=== PATIENT | male | born 1970 | race Caucasian/White ===

== ENCOUNTER → 2020-07-01 13:12 | Outpatient (CLI) | payer OTHER, SELFPAY ==
--- NOTE | ~2020-07-01 | US_ITS ---
EXAMINATION: US thyroid DATE: 07/01/2020 13:30 INDICATION: Nontoxic single thyroid nodule. TECHNIQUE: Multiple ultrasound images of the thyroid were obtained. COMPARISON: None. FINDINGS: The right thyroid lobe measures 5.2 x 1.9 x 1.7 cm. The left thyroid lobe measures 4.8 x 1.9 x 1.7 c m. There is normal echotexture and echogenicity throughout the thyroid gland. No discrete nodules id entified. Normal vascular flow is present. IMPRESSION: 1. Normal thyroid. Reviewed, dictated and finalized at location A. NSED CLINICAL SOCIAL WORKER IMPRESSION: 1. Normal thyroid.
== END ==
PROVIDERS: PCP Family Medicine; Visit Provider Family Medicine
DX: E04.1 Nontoxic single thyroid nodule (principal)
CPT/HCPCS: 76536

== ENCOUNTER 2021-10-06 14:31 | Emergency (ER) | payer OTHER, SELFPAY ==
--- NOTE | ~2021-10-06 | XR_ITS ---
EXAMINATION: XR foot RT min 3V EXAM DATE: 10/06/2021 14:51 INDICATION: Pain, bruising Rt 2nd toe, dropped heavy object onto toe today . TECHNIQUE: Right foot dorsoplantar, lateral and oblique projections obtained and reviewed. Right 2nd toe lateral image. There is no prior study for comparison. FINDINGS: Right metatarsal bones unremarkable. There is acute closed posttraumatic nondisplaced fra cture of the right 2nd distal phalanx, best seen on the dedicated right 2nd toe lateral image. There is overlying soft tissue swelling. No other suspicious findings. IMPRESSION: Nondisplaced right 2nd distal phalangeal fracture. Reviewed, dictated and finalized at location A.
[2021-10-06 14:38] VITALS: BP 138/90; PULSE 70; RESP 12; TEMP 37.3; O2SAT 100
--- NOTE | 2021-10-06 14:42 | ED.LOWEXIN ---
HPI - Extremity Injury (Lower) General Chief Complaint: Extremity Injury, Lower Stated Complaint: INJURED TOE Time Seen by Provider: 10/06/21 14:42 Source: patient Mode of arrival: ambulatory Limitations: no limitations History of Present Illness HPI Narrative: 51 y/o male presented for c/o pain to right 2nd toe after injury today at work. States a metal header approx 30lbs landed on the toe. He was wearing tennis shoes. Endorses bruising, mild pain/swelling. He states he can bend the toe. Denies open wounds, numbness, tingling or weakness. Ambulating with steady gait. Has not taken anything for pain. Related Data Home Medications Medication Instructions Recorded Confirmed No Home Medications 06/27/20 06/27/20 Allergies Allergy/AdvReac Type Severity Reaction Status Date / Time No Known Allergies Allergy Verified 06/27/20 15:49 Review of Systems Review of Systems: CONSTITUTIONAL: Denies body aches, fever, chills EYES: Denies visual changes ENT: Denies rhinorrhea, congestion CARDIOVASCULAR: Denies chest pain, palpitations, or edema. RESPIRATORY: Denies cough or dyspnea. GASTROINTESTINAL: Denies abdominal pain, nausea, vomiting, or diarrhea. SKIN: Denies rash, itching, or wounds. MUSCULOSKELETAL: reports right 2nd toe pain NEUROLOGIC: Denies headache, numbness, tingling, or weakness. PSYCH: Denies depression or anxiety. All systems reviewed & are unremarkable except as noted in HPI and below PMFSH Family History Family History Father Thyroid cancer Cerebrovascular accident Mother Crohn disease Social History Social History Smoking packs per day: 0.5 Smoking cigarettes per day: 10.0 Years smoked: 18 Smoking pack-years: 9.00 Smoking status: Current every day smoker Second hand tobacco smoke exposure: Yes Alcohol intake: current Drinks per week: 2 Substance use: never Substance use type: does not use Gender identity (if verbalized by the patient): Male Comments At time of signature, I have reviewed and agree with nursing past medical, surgical, social and family history unless otherwise noted. Please see nursing chart for further information. There is no relevant family history pertinent to the presenting complaint Exam Narrative: GENERAL: Well-appearing, well-nourished, and in no acute distress. HEAD: Normocephalic, atraumatic. EYES: conjunctivae clear NECK: Supple. CHEST: Speaks in full sentences. No respiratory distress. HEART: Regular rate and rhythm. Normal and equal peripheral pulses. EXTREMITIES: Right 2nd toe with mild edema and ecchymosis to the DIP and middle phalanx approx 1cm diameter with superficial skin abrasion no bleeding or drainage, minimal tenderness with palpation. right foot has normal strength and sensation, normal range of motion to the toe. No obvious deformity; pulse palpable and equal bilaterally, skin warm, dry, pink. Capillary refill less than 3 seconds. SKIN: Warm, dry, no rash. NEURO: Alert and oriented x3. PSYCH: Normal mood and affect Course Course Emergency Course: Patient is aware of diagnosis, understands and agrees to treatment plan. Anticipatory guidance given. Patient agrees to follow-up as directed and is aware of reasons to seek care at the emergency department. Portions of this record may have been created with voice recognition software Level of Care: Express Care Visit Vital Signs Vital signs: Reviewed MDM - Extremity Injury (Lower) MDM Narrative Medical decision making narrative: Xray shows nondisplaced fx distal phalanx of right 2nd toe, reviewed with pt. Josh tape and post op shoe advised and applied per RN/tech. no concern for tendon/nerve injury at this time. Advised to f/u with pcp, and ortho/supervisor powder and primer canning. Questions answered. v/u Differential Diagnosis Differential diagnosis: Likely fracture of toe Imaging
== END 2021-10-06 15:16 | disposition home or self-care (01) ==
PROVIDERS: Emergency Provider Nurse Practitioner Family; PCP Family Medicine
DX: S92.534A Nondisplaced fracture of distal phalanx of right lesser toe(s), initial encounter for closed fracture (principal); W20.8XXA Other cause of strike by thrown, projected or falling object, initial encounter; F17.210 Nicotine dependence, cigarettes, uncomplicated
CPT/HCPCS: 73630; 99214; G0463

== ENCOUNTER → 2021-10-16 11:22 | Outpatient (CLI) | payer OTHER, SELFPAY ==
--- NOTE | ~2021-10-16 | XR_ITS ---
XR toe 2nd RT min 2V DATE: 10/16/2021 12:08 INDICATION: Right toe fracture TECHNIQUE: 3 views COMPARISON: right foot FINDINGS: Again noted is fracture of the shaft and tuft of the distal phalanx of the second digit wit hout significant displacement or angulation. There is soft tissue swelling of the second digit. IMPRESSION: Virtually nondisplaced fracture of the distal phalanx, with surrounding soft tissue swell ing Reviewed, dictated and finalized at location A. IMPRESSION: Virtually nondisplaced fracture of the distal phalanx, with surroun ding soft tissue swelling
== END ==
PROVIDERS: PCP Family Medicine; Visit Provider Family Medicine
DX: S92.534A Nondisplaced fracture of distal phalanx of right lesser toe(s), initial encounter for closed fracture (principal)
CPT/HCPCS: 73660

== ENCOUNTER → 2021-11-18 15:40 | Outpatient (CLI) | payer OTHER, SELFPAY ==
--- NOTE | ~2021-11-18 | XR_ITS ---
EXAMINATION: XR foot RT 2V INDICATION: Right second digit fracture, follow-up TECHNIQUE: Two views of the right foot are obtained. COMPARISON: 10/16/2021 FINDINGS: Again seen is a neck fracture of the second distal phalanx. There does not appear to be muna reciable calcified callus at the fracture site although sensitivity is limited by two view radiograph . There is mild osteoarthritis of multiple interphalangeal joints. No additional fracture is identifi ed. The soft tissues are unremarkable. IMPRESSION: 1. Persistent fracture of the second distal phalanx without appreciable calcified callus. Reviewed, dictated and finalized at location F. IMPRESSION: 1. Persistent fracture of the second distal phalanx without appreciable calcifi ed callus.
== END ==
PROVIDERS: PCP Family Medicine; Visit Provider Family Medicine
DX: S92.911A Unspecified fracture of right toe(s), initial encounter for closed fracture (principal); M19.071 Primary osteoarthritis, right ankle and foot
CPT/HCPCS: 73620

== ENCOUNTER 2023-09-15 10:26 | Outpatient (CLI) | payer OTHER, SELFPAY ==
[2023-09-15 12:10] LABS: Influenza A QL RT-PCR Negative (Negative); Influenza B QL RT-PCR Negative (Negative); RSV RNA, RT-PCR Negative (Negative); SARS-CoV-2 RNA PCR Negative (Negative)
== END 2023-09-15 10:27 | disposition home or self-care (01) ==
LOC: ANHLAB 10:28
PROVIDERS: PCP Family Medicine; Visit Provider Physician Assistant
DX: R50.9 Fever, unspecified (principal)
CPT/HCPCS: 87637

== ENCOUNTER 2023-09-16 21:04 | Emergency (ER) | payer OTHER, SELFPAY ==
--- NOTE | ~2023-09-16 | XR_ITS ---
EXAMINATION: XR chest 2V Exam Date/Time: 09/16/2023 22:15 CDT HISTORY: fevers X 3 DAYS Comparison: 05/30/2016. RESULT: Lines, tubes, and devices: None. Lungs and pleura: Clear. Cardiomediastinal silhouette: Stable. Other: No acute osseous or upper abdominal finding. IMPRESSION: No acute cardiopulmonary process. Reviewed, dictated and finalized at location K.
[2023-09-16 21:07] VITALS: BP 149/82; PULSE 82; RESP 20; TEMP 38.3; O2SAT 100
[2023-09-16 21:56] LABS: Strep Group A RT-PCR NOT DETECTED (Negative)
[2023-09-16 22:08] LABS: Influenza A QL RT-PCR Negative (Negative); Influenza B QL RT-PCR Negative (Negative); RSV RNA, RT-PCR Negative (Negative); SARS-CoV-2 RNA PCR Negative (Negative)
[2023-09-16 22:46] LABS: Basophils Percent Auto 0.5 % (0.2-1.2); Eosinophils Absolute Auto 0.1 K/mm3 (0-0.3); Eosinophils Percent Auto 1.5 % (0-4.4); Hematocrit 43.2 % (42.0-52.0); Hemoglobin 14.3 g/dL (14.0-18.0); Immature Granulocyte Absolute 0.02 K/mm3 (0.00-0.031); Immature Granulocyte Percent A 0.3 % (0-0.5); Lymphocytes Absolute Auto 2.12 K/mm3 (0.9-3.2); Lymphocytes Percent Auto 32.6 % (18.3-44.2); Mean Corpuscular HGB Conc 33.1 g/dl (32-36); Mean Corpuscular Hemoglobin 31.2 pg (26-34); Mean Corpuscular Volume 94.3 fl (80-100); Mean Platelet Volume 10.2 fl (7.4-10.4); Monocytes Absolute Auto 0.8 K/mm3 (0.1-0.6); Neutrophils Absolute Auto 3.5 K/mm3 (1.3-6.7); Neutrophils Percent Auto 53.1 % (45.5-73.1); Platelet Count Result 162 k/mm3 (150-375); Red Blood Count 4.58 M/mm3 (4.6-6.20); Red Cell Distribution Width 12.9 % (11.5-14.5); White Blood Count 6.5 K/mm3 (4.5-10.0)
[2023-09-16 22:47] LABS: Appearance Urine Clear (Clear); Bilirubin Urine Negative (Negative); Blood Urine Negative (Negative); Color Urine Yellow (Yellow); Glucose Urine UA Negative (Negative); Ketones Urine Negative (Negative); Leukocyte Esterase Ur Negative LEU/UL (Negative); Nitrate Urine Negative (Negative); Protein Urine Negative (Negative); pH Urine 5.5 (5.0-9.0)
--- NOTE | 2023-09-16 22:47 | ED.FEVER ---
HPI - Fever General Chief Complaint: Fever Stated Complaint: fever Time Seen by Provider: 09/16/23 21:25 Source: patient Mode of arrival: ambulatory Limitations: no limitations History of Present Illness HPI Narrative: Patient is a 53 y/o female who presents to ED with c/o fever. Patient reports having intermittent fevers over the last 3 days. States fever has been up to 102.5 degree F. He has been taking Tylenol and ibuprofen as needed for this. Patient otherwise denies any other symptoms. Denies abdominal or back pain, cough, congestion, sore throat, nausea, vomiting, diarrhea, urinary symptoms, headaches, neck pain, rashes or wounds. Denies known sick contacts. Related Data Home Medications Medication Instructions Recorded Confirmed No Home Medications 06/27/20 12/16/21 Allergies Allergy/AdvReac Type Severity Reaction Status Date / Time No Known Allergies Allergy Verified 09/16/23 21:05 Review of Systems Review of Systems: CONSTITUTIONAL: See HPI. ENT: Denies rhinorrhea, congestion, sore throat. CARDIOVASCULAR: Denies chest pain, palpitations, or edema. RESPIRATORY: Denies cough or dyspnea. GASTROINTESTINAL: Denies abdominal pain, nausea, vomiting, or diarrhea. GENITOURINARY: Denies dysuria or hematuria. MUSCULOSKELETAL: Denies back pain, extremity pain, myalgia. NEUROLOGIC: Denies headache, dizziness, numbness, or weakness. All systems reviewed & are unremarkable except as noted in HPI and below PMFSH Family History Family History Father Thyroid cancer Cerebrovascular accident Mother Crohn disease Social History Social History Smoking packs per day: 0.5 Smoking cigarettes per day: 10.0 Years smoked: 20 Smoking pack-years: 10.00 Smoking status: Current every day smoker Second hand tobacco smoke exposure: Yes Alcohol intake: current Drinks per week: 2 Substance use: never Substance use type: does not use Living arrangements: with family Occupation/Education: occupation Gender identity (if verbalized by the patient): Male Exam Narrative: GENERAL: Well appearing, thin, non-toxic, in no acute distress. HEAD: Normocephalic, atraumatic. EENT: PERRL/EOMI, conjunctiva clear. TMs clear bilaterally, no evidence of AOE/AOM. MMs moist. No significant posterior pharynx erythema. NECK: Neck supple. No meningeal signs. RESPIRATORY: Airway patent, respirations nonlabored. Clear to auscultation bilaterally, no rales, rhonchi, wheezing. No focal lung sounds. CARDIOVASCULAR: Regular rate and rhythm without murmurs, rubs, or gallops. ABDOMINAL: Soft, no tenderness throughout abdomen, nondistended. Normoactive BS. MUSCULOSKELETAL: Moves all extremities. No gross deformities. SKIN: Warm, dry, normal color. No wounds/rashes. NEURO: A&O X3. Speech clear. PSYCHIATRIC: Appropriate mood and affect. Normal interaction. Course Vital Signs Vital signs: Vital Signs Temperature 100.9 F H 09/16/23 21:07 Pulse Rate 82 09/16/23 21:07 Respiratory Rate 20 09/16/23 21:07 Blood Pressure 149/82 H 09/16/23 21:07 Pulse Oximetry 100 09/16/23 21:07 Oxygen Delivery Room Air 09/16/23 21:07 Temperature 100.0 F H 09/16/23 23:42 Pulse Rate 82 09/17/23 00:11 Respiratory Rate 18 09/17/23 00:11 Blood Pressure 107/70 09/17/23 00:11 Pulse Oximetry 99 09/17/23 00:11 Oxygen Delivery Room Air 09/16/23 21:07 MDM - Fever MDM Narrative Medical decision making narrative: Patient present ED with 3 day history of fevers. No other associated symptoms. Has been taking Tylenol and ibuprofen for symptoms at home. Patient's temperature upon arrival 100.9? F. Vitals are otherwise stable. Patient no acute distress. Exam is otherwise unremarkable. [place], influenza, RSV, COVID, strep testing is negative. Laboratory studies are unremarka
[2023-09-16 22:51] LABS: Add Urine Microscopic? NO
[2023-09-16 22:58] VITALS: BP 114/72; PULSE 77; RESP 16; RESP 18; O2SAT 98
[2023-09-16] MEDS: ACETAMINOPHEN 500 MG TABLET 1000 MG PO (23:00)
[2023-09-16 23:05] LABS: Alanine Aminotransferase 34 U/L (6-50); Albumin Level 4.4 g/dL (3.5-5.1); Alkaline Phosphatase 89 U/L (38-126); Anion Gap 5 mmol/L (4-12); Aspartate Amino Transferase 39 U/L (17-59); Bilirubin,Total 0.7 mg/dL (0.2-1.3); Blood Urea Nitrogen 14 mg/dL (9-20); Calcium 9.1 mg/dL (8.4-10.2); Carbon Dioxide 30 mmol/L (22-30); Chloride 99 mmol/L (98-107); Estimated CRCL calculation 96 ml/min; Estimated Glomerular Filt Rate > 60; Glucose 110 mg/dL (65-110); Sodium 134 mmol/L (137-145)
[2023-09-16 23:11] LABS: Monoscreen Negative (Negative); Negative Monotest Control Negative (Negative); Positive Monotest Control Positive (Positive)
[2023-09-16 23:22] LABS: Potassium 4.2 mmol/L (3.4-5.0)
[2023-09-16 23:42] VITALS: TEMP 37.8
[2023-09-17 00:11] VITALS: BP 107/70; PULSE 82; RESP 18; O2SAT 99
== END 2023-09-17 00:11 | disposition home or self-care (01) ==
PROVIDERS: Student in an Organized Health Care Education/Training Program; Emergency Provider Physician Assistant; PCP Family Medicine
DX: R50.9 Fever, unspecified (principal); Z20.822 Contact with and (suspected) exposure to COVID-19; F17.210 Nicotine dependence, cigarettes, uncomplicated
CPT/HCPCS: 36415; 71046; 80053; 81003; 85025; 86308; 87637; 87651; 99283; A9270

== ENCOUNTER 2025-05-29 09:46 | Emergency (ER) | payer OTHER, SELFPAY ==
--- NOTE | ~2025-05-29 | XR_ITS ---
EXAMINATION: XR finger 1st LT min 2V, 05/29/2025 10:20 REGISTERED SALES ASSISTANT HISTORY: circular saw lac COMPARISON: No comparisons available. Findings: Slightly displaced fracture distal aspect of the distal phalanx. No significant degenerative changes. Soft tissues unremarkable. Impression: Fractures detailed above Reviewed, dictated and finalized at location P. STERED SALES ASSISTANT Impression: Fractures detailed above
[2025-05-29 10:00] VITALS: PULSE 70; RESP 16; TEMP 37; O2SAT 99
--- NOTE | 2025-05-29 10:30 | ED_ITS ---
HPI - Wound/Laceration General Chief Complaint: Wound/Laceration <JOSE Santos Last Filed: 05/29/25 12:53> Stated Complaint: laceration left thumb <JOSE Santos Last Filed: 05/29/25 12:53> Time Seen by Provider: 05/29/25 10:01 <JOSE Santos Last Filed: 05/29/25 12:53> Source: patient <JOSE Santos Last Filed: 05/29/25 12:53> Mode of arrival: ambulatory <JOSE Santos Last Filed: 05/29/25 12:53> Limitations: no limitations <JOSE Santos Last Filed: 05/29/25 12:53> History of Present Illness HPI narrative: Patient is a 55-year-old male who presents the ED with report of a laceration to his left thumb. Patient reports he was using a circular saw just prior to arrival when he sustained a large laceration through the nail and left thumb. Denies any other injures. Denies numbness. Tetanus unknown. <JOSE Santos Last Filed: 05/29/25 12:53> Related Data Home Medications: Home Medications ?Medication ?Instructions ?Recorded ?Confirmed ?Last Taken ?Type No Home Medications 06/27/20 09/19/23 U nknown History <JOSE Santos Last Filed: 05/29/25 12:53> Allergies/Adverse Reactions: Allergies Allergy/AdvReac Type Severity Reaction Status Date / Time No Known Allergies Allergy Verified 05/29/25 09:47 <JOSE Santos Last Filed: 05/29/25 12:53> Review of Systems Review of Systems: All systems reviewed & are unremarkable except as noted in HPI. <JOSE Santos Last Filed: 05/29/25 12:53> All systems reviewed & are unremarkable except as noted in HPI and below <JOSE Santos Last Filed: 05/29/25 12:53> PMFSH Family History Family History: Family History Father Thyroid cancer Cerebrovascular accident Mother Crohn disease <Bita South PA-C - Last Filed: 05/29/25 12:53> Social History Social History: Social History Smoking packs per day: 0.5 Smoking cigarettes per day: 10.0 Years smoked: 20 Smoking pack-years: 10.00 Smoking status: Current every day smoker Second hand tobacco smoke exposure: Yes Alcohol intake: current Drinks per week: 2 Substance use: never Substance use type: does not use Living arrangements: with family Occupation/Education: occupation Gender identity (if verbalized by the patient): Male <Bita South PA-C - Last Filed: 05/29/25 12:53> Exam Narrative: GENERAL: Well appearing, well-nourished, non-toxic, in no acute distress. HEAD: Normocephalic, atraumatic. RESPIRATORY: Airway patent, respirations nonlabored. Clear to auscultation bilaterally, no rales, rhonchi, wheezing. CARDIOVASCULAR: Regular rate and rhythm without murmurs, rubs, or gallops. Radial pulses strong and intact MUSCULOSKELETAL: Moves all extremities. Able to flex and abduct and perform OK sign with L thumb. Large jagged laceration beginning on dorsal aspect of thumb medial distal nail plate, extending through entirety of nail, through cuticle, and towards lateral edge of finger/DIP region. No through and through injury/complete avulsion, though flap of lateral edge of finger is very mobile. Active bleeding/oozing from nail plate/nail bed region. Distal sensation intact. Capillary refill intact. SKIN: Warm, dry, normal color. NEURO: A&O X3. Speech clear. No ataxic movements. PSYCHIATRIC: Appropriate mood and affect. Normal interaction. 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 I performed all aspects of the Medical Decision Making as documented. <Ji Pierre MD - Last Filed: 05/29/25 19:06> Vital Signs Vital signs: Vital Signs Temperature 98.6 F 05/29/25 10:00 Pulse Rate 70 05/29/25 10:00 Respiratory Rate 16 05/29/25 10:00 Pulse Oximetry 99 05/29/25 10:00 Temperature 98.6 F 05/29/25 10:00 Pulse Rate 80 05/29/25 11:48 Respiratory Rate 16 05/29/25 11:48 Blood Pressure 138/86 05/29/25 11:48 Pulse Oximetry 99 05/29/25 11:48 <Bita South PA-C - Last Filed: 05/29/25 12:53> Vital Signs Temperature 98.6 F 05/29/25 10:00 Pulse Rate 70 05/29/25 10:00 Respiratory Rate 16 05/29/25 10:00 Pulse Oximetry 99 05/29/25 10:00 Temperature 98.6 F 05/29/25 10:00 Pulse Rate 80 05/29/25 11:48 Respiratory Rate 16 05/29/25 11:48 Blood Pressure 138/86 05/29/25 11:48 Pulse Oximetry 99 05/29/25 11:48 <Ji Pierre MD - Last Filed: 05/29/25 19:06> [facility] Narrative Medical decision making narrative: Patient with large laceration through left thumb, involving nail. Neurovascularly intact. XR finger: Slightly displaced fracture distal aspect of the distal phalanx. Confirming open fracture. Given complex nature of laceration with open fracture, will discuss with hand surgery/plastics. Tetanus updated in the ED. Patient given 1 g of Ancef [facility] Unable to reach hand/trauma/plastic however patient accepted to ED by Dr. Abbasi. Patient to go by POV. Advised to go directly to [facility] ED, do not make any stops, do not eat/drink. In agreement with plan. Given pain control. Bandaged. <Bita South PA-C - Last Filed: 05/29/25 12:53> Differential Diagnosis Differential Diagnosis: laceration, finger fracture, open fracture, finger sprain <JOSE Santos Last Filed: 05/29/25 12:53> Medical Records I have reviewed the following patient records and this information was taken into consideration when formulating the assessment and plan.: previous labs, previous ER visits, previous hospitalizations and previous clinic visits <Bita South PA-C - Last Filed: 05/29/25 12:53> Imaging Data Attestation: I personally reviewed and interpreted this imaging study as follows: <Bita South PA-C - Last Filed: 05/29/25 12:53> Radiologist's impression: ITS Impressions Finger X-Ray 05/29/25 10:30 Impression: Fractures detailed above ITS Impressions Finger X-Ray 05/29/25 10:30 Impression: Fractures detailed above <Bita South PA-C - Last Filed: 05/29/25 12:53> ITS Impressions Finger X-Ray 05/29/25 10:30 Impression: Fractures detailed above <Ji Pierre MD - Last Filed: 05/29/25 19:06> Discharge Plan Discharge Clinical Impression: Open fracture of left thumb Qualifiers: Encounter type: initial encounter Phalanx: distal Fracture alignment: displaced Qualified Code(s): S62.522B - Displaced fracture of distal phalanx of left thumb, initial encounter for open fracture Laceration of left thumb with damage to nail Qualifiers: Encounter type: initial encounter Foreign body presence: without foreign body Qualified Code(s): S61.112A - Laceration without foreign body of left thumb with damage to nail, initial encounter <Bita South PA-C - Last Filed: 05/29/25 12:53> Patient Disposition: Acute Care Hospital <Bita South PA-C - Last Filed: 05/29/25 12:53> Condition: Stable <JOSE Santos Last Filed: 05/29/25 12:53> Additional Instructions: Go straight to [facility] Emergency Department. Do not make any stops. Do not eat or drink. <JOSE Santos Last Filed: 05/29/25 12:53> Patient Language: Greenlandic <Bita South PA-C - Last Filed: 05/29/25 12:53> Prescriptions: No Action No Home Medications <Bita South PA-C - Last Filed: 05/29/25 12:53> Follow-up/Referrals: Yvon,MD Comfort [Primary Care Provider, [facility]] <Bita South PA-C - Last Filed: 05/29/25 12:53> Time of Disposition: 12:01 <Bita South PA-C - Last Filed: 05/29/25 12:53> 12:01 <Ji Pierre MD - Last Filed: 05/29/25 19:06>
[2025-05-29] MEDS: ceFAZolin 1 GM in SODIUM CHLORIDE 0.9% IV 50 ML 100 ML IVPB (10:36)
[2025-05-29] MEDS: HYDROmorphone HCL INJ (*CRX) 1 MG/ML SYR 0.5 MG IV PUSH ×2 (10:37→12:10)
[2025-05-29] MEDS: TETANUS,DIPHTHERIA,AC PERTUSSIS ADULT (0.5 ML) BOOSTRIX IM (10:37)
[2025-05-29 11:48] VITALS: BP 138/86; PULSE 80; RESP 16; O2SAT 99
[2025-05-29] MEDS: KETOROLAC 30 MG/ML VIAL (*BKC) IV PUSH (12:10)
== END 2025-05-29 12:40 | disposition short-term general hospital (02) ==
PROVIDERS: Emergency Provider Physician Assistant; PCP Family Medicine
DX: S62.522B Displaced fracture of distal phalanx of left thumb, initial encounter for open fracture (principal); W27.0XXA Contact with workbench tool, initial encounter; Z23 Encounter for immunization; F17.210 Nicotine dependence, cigarettes, uncomplicated
CPT/HCPCS: 73140; 90471; 90715; 96365; 96375; 96376; 99284; J0690; J1171; J1885